=== PATIENT | female | born 1990 | race Caucasian/White ===

== ENCOUNTER 2019-04-21 12:58 | Emergency (ER) | payer MEDICAID ==
[2019-04-21] MEDS: ACETAMINOPHEN 500 MG TAB PO (14:35)
[2019-04-21 14:52] LABS: ADD MAN DIFF? NO
[2019-04-21 14:56] LABS: BASOPHILS % 0.5 % (0.0-2.0); EOSINOPHILS # 0.1 10^3/ul (0.0-0.5); HEMATOCRIT 39.8 % (37.0-47.0); LYMPHOCYTES # 1.8 10^3/ul (0.8-2.9); LYMPHOCYTES % 21.1 % (15.0-51.0); MEAN CORPUSCULAR HEMOGLOBIN 31.4 pg (29.0-33.0); MEAN CORPUSCULAR HGB CONC 32.7 g/dl (32.0-37.0); MEAN CORPUSCULAR VOLUME 96.1 fl (82.0-101.0); MEAN PLATELET VOLUME 11.3 fl (7.4-10.4); MONOCYTE # 0.7 10^3/ul (0.3-0.9); MONOCYTES % 7.8 % (0.0-11.0); NEUTROPHIL # 5.8 10^3/ul (1.6-7.5); NEUTROPHILS % 69.4 % (39.0-77.0); PLATELET COUNT 222 10^3/UL (140-415); RED BLOOD COUNT 4.14 10^6/ul (4.20-5.40); RED CELL DISTRIBUTION WIDTH 11.6 % (11.5-14.5)
[2019-04-21 14:56] LABS: WHITE BLOOD COUNT 8.4 10^3/ul (4.8-10.8)
[2019-04-21 15:05] LABS: URINE PH (Dip) POC 7.5 (5.0-8.5)
[2019-04-21 15:05] LABS: URINE BLOOD (Dip) POC 1+ (NEGATIVE); URINE GLUCOSE (Dip) POC Negative (NEGATIVE); URINE KETONES (Dip) POC Negative (NEGATIVE); URINE LEUKOCYTE EST (Dip) POC 2+ (NEGATIVE); URINE NITRITE (Dip) POC Negative (NEGATIVE); URINE TOTAL PROTEIN POC 1+ (NEGATIVE)
[2019-04-21 15:16] LABS: ANION GAP 8 (5-13); BLOOD UREA NITROGEN 7 mg/dl (7-20); CARBON DIOXIDE 29 mmol/L (21-31); CHLORIDE 107 mmol/L (97-110); CREATININE 0.52 mg/dl (0.44-1.00); Estimated GFR > 60 mL/min (>60); GLUCOSE 92 mg/dl (70-220); POTASSIUM 4.6 mmol/L (3.5-5.1); SODIUM 144 mmol/L (135-144)
[2019-04-21] MEDS: FAMOTIDINE 20 MG TAB PO (15:26)
[2019-04-21] MEDS: LIDOCAINE/MYLANTA 40 ML BTL PO (15:26)
[2019-04-21] MEDS: CEFTRIAXONE 1 GM INJ IM (15:37)
[2019-04-21] MEDS: LIDOCAINE 1% (MPF) 5 ML VIAL INFIL (15:37)
== END 2019-04-21 15:54 | disposition home or self-care (01) ==
LOC: FTE 12:58
DX: R10.13 Epigastric pain (principal)
CPT/HCPCS: 80048; 81003; 81025; 85025; 96372; 99284-25